=== PATIENT | male | born 1950 | race Caucasian/White ===

== ENCOUNTER → 2024-06-27 16:08 | Outpatient (REF) | payer MEDICARE, OTHER, SELFPAY | LOC: RAD 16:08 | PROVIDERS: ATTENDING PHYSICIAN Specialist; FAMILY PHYSICIAN Family Medicine | DX: N20.1 Calculus of ureter (principal) | CPT/HCPCS: 74018 ==

== ENCOUNTER → 2024-07-17 11:34 | Outpatient (REF) | payer MEDICARE, OTHER, SELFPAY | LOC: HWRAD 11:34 | PROVIDERS: ATTENDING PHYSICIAN Specialist; FAMILY PHYSICIAN Family Medicine | DX: N20.0 Calculus of kidney (principal) | CPT/HCPCS: 74176 ==

== ENCOUNTER → 2024-12-10 09:58 | Outpatient (REF) | payer MEDICARE, OTHER, SELFPAY | LOC: SDSPAT 09:58 | PROVIDERS: ATTENDING PHYSICIAN Specialist; FAMILY PHYSICIAN Family Medicine | DX: N20.0 Calculus of kidney (principal); N39.0 Urinary tract infection, site not specified; B95.2 Enterococcus as the cause of diseases classified elsewhere; Z01.818 Encounter for other preprocedural examination | CPT/HCPCS: 36415; 93005 ==

== ENCOUNTER 2024-12-14 05:56 | Day surgery (SDC) | payer MEDICARE, OTHER, SELFPAY ==
--- NOTE | 2024-12-06 16:25 | PTCARENOTE ---
Abnormal WBC of 90.8 on 10/05/24. Rosemary at Dr. Watson's office notified.
--- NOTE | 2024-12-10 11:57 | PTCARENOTE ---
Abn ECG showing AFib, patient denied history of Afib, Cardiac services notified, [facility] Operator to contact Patient.
[2024-12-10 14:16] VITALS: BMI 29.0
--- NOTE | 2024-12-10 14:50 | PTCARENOTE ---
Rosemary at Dr Watson's office notified about Abnormal ECG (afib) done 12/10/24.
[2024-12-14] VITALS (8 sets, daily range): BP systolic 122–151; BP diastolic 81–90; BMI 29.0
[2024-12-14] MEDS: NORMOSOL-R/PLASMALYTE-A 1000 IV (06:38)
[2024-12-14] MEDS: VANCOCIN 530 MG IV (06:38)
[2024-12-14] MEDS: TORADOL 30 MG IV (09:36)
== END 2024-12-14 09:55 | disposition home or self-care (01) ==
LOC: SDS 05:56
PROVIDERS: ATTENDING PHYSICIAN Specialist
DX: N20.0 Calculus of kidney (principal); N39.0 Urinary tract infection, site not specified; B95.2 Enterococcus as the cause of diseases classified elsewhere
CPT/HCPCS: 52356; 74018; 76000; C2617